=== PATIENT | male | born 1970 | race Caucasian/White ===

== ENCOUNTER → 2017-04-20 | Outpatient (CLI) | payer SELFPAY ==
--- NOTE | 2017-04-20 10:19 | RAD ---
HISTORY: Chronic back pain Study: Three views of the lumbar spine Comparison: None Findings: The lumbar vertebral body heights are relatively maintained. No evidence of acute displaced fracture or significant subluxation is identified. Degenerate facet changes are seen throughout the lumbar spi ne. Intervertebral disc space narrowing is noted at L4/L5 and L5/S1. IMPRESSION: 1. Degenerative changes as noted above. Reported By:
--- NOTE | 2017-04-20 15:37 | RAD ---
History: Chronic left elbow pain Study: Left elbow three views Findings: Three views of the left elbow show no fracture or dislocation. No erosion or effusion is se en. Impression: No acute findings of the left elbow. Reported By:
== END | disposition home or self-care (01) ==
LOC: RAD 09:31
PROVIDERS: ATTEND Internal Medicine
DX: M54.5 Low back pain (principal); M25.522 Pain in left elbow; M51.36 Other intervertebral disc degeneration, lumbar region
CPT/HCPCS: 72100; 73070